=== PATIENT | female | born 1955 | race Caucasian/White ===

== ENCOUNTER 2016-04-14 08:44 | Emergency (ER) | payer MEDICAID, OTHER ==
[~2016-04-14] VITALS: Ht 154.9 cm; Wt 80.0 kg
[~2016-04-14 08:44] MED LIST: ALBU0.63 NEB; CAFF200T PO; CALCCHW9 CHEW; CYCL5TAB PO; DAPA1TAB PO; EXEN1INJ SQ; GLIM2TAB PO; GLIM4TAB PO; GLUC100017 PO; LEVO25TA4 PO; LISI40TA PO; LOVA20TA PO; METF500T PO; METO50TA11 PO; MULTCAP3 PO; NAPR500T PO; PRED20 PO; SULF1TAB23 PO
[2016-04-14 08:54] VITALS: BP 140/75; PULSE 84; RESP 20; TEMP 96.5; O2SAT 89
--- NOTE | 2016-04-14 09:05 | PD ---
HPI Chief Complaint: Back/ Neck Pain or Injury Time Seen by Provider: 09:02 Travel History International Travel<30 days: No Contact w/Intl Traveler<30days: No Traveled to known affect area: No History of Present Illness HPI 60 year-old woman history of interstitial lung disease, on chronic steroids, presents with worsening back pain, radiating down both legs, ongoing for 5 months or so. Worse over the past week. No numbness feeling weakness. No bowel or bladder symptoms. She thinks she had some x-rays and she was getting evaluated for lung transplant. She is not sure. She gets Medicare and another month or so, but states she's been having trouble For definitive follow-up on Medicaid. History Past Medical History Narrative Medical Diabetes Hypertension Interstitial lung disease / pulmonary fibrosis Menopausal: Yes Social History Alcohol Use: Yes (SEVERAL TIMES A WEEK) Tobacco Use: No Allergies-Medications (Allergen,Severity, Reaction): Coded Allergies: No Known Allergies (Verified , 04/14/16) Reported Meds & Prescriptions Reported Meds & Active Scripts Active Naproxen 500 Mg Tab 500 Mg PO BID 7 Days Reported Caffeine 200 Mg Tab 200 Mg PO DAILY Calcium 1200 (Calcium Carbonate-Vitamin D W/Minerals) 1,200-1,000 Mg-Unit Chew 1 Tab CHEW DAILY Multivitamins (Multiple Vitamin) 1 Cap Cap 1 Cap PO DAILY Glucosamine (Glucosamine Sulfate) 1,000 Mg Cap 2,000 Mg PO DAILY Metoprolol Succinate ER 24 HR (Metoprolol Succinate) 50 Mg Tab 50 Mg PO DAILY Farxiga (Dapagliflozin) 5 Mg Tab 5 Mg PO DAILY Bydureon Pen Inj (Exenatide) 2 Mg Pfpen 2 Mg SQ Q7D Glimepiride 2 Mg Tab 2 Mg PO 1800 Glimepiride 4 Mg Tab 4 Mg PO AM Take with breakfast or first main meal Metformin (Metformin HCl) 500 Mg Tab 1,000 Mg PO BIDPC With meals Lisinopril 40 Mg Tab 40 Mg PO DAILY Lovastatin 20 Mg Tab 20 Mg PO HS Levothyroxine (Levothyroxine Sodium) 25 Mcg Tab 25 Mcg PO DAILY Albuterol Neb (Albuterol Sulfate) 0.63 Mg/3 Ml Neb 0.63 Mg NEB Q4HR NEB PRN Sulfamethoxazole-Trimethoprim 800-160 Mg Tab 1 Tab PO 3 TIMES A WEEK Prednisone 20 Mg Tab 20 Mg PO DAILY Review of Systems Except as stated in HPI: all other systems reviewed are Neg Physical Exam Narrative GENERAL: Well-developed, well-nourished, no acute distress. SKIN: Warm and dry. CARDIOVASCULAR: Warm and well perfused. RESPIRATORY: Normal rate and effort. MUSCULOSKELETAL: Normal appearance of back and bilateral lower extremities. No ecchymosis, swelling, bruising. No rashes. Normal muscle bulk and tone. NEUROLOGICAL: Strength full 5/5 and equal in bilateral lower extremities in proximal and distal muscle groups. 5/5 in large toe flexion and extension. Sensation is intact to light touch throughout. Reflexes symmetric. No clonus. PSYCHIATRIC: Appropriate mood and affect; insight and judgment normal. Data Data Last Documented VS Vital Signs Date Time Temp Pulse Resp B/P Pulse Ox O2 Delivery O2 Flow Rate FiO2 04/14/16 08:54 96.5 84 20 140/75 89 Orders Spine, Lumbar Comp W/Obliq (04/14/16 ) [facility] Medical Decision Making Medical Screen Exam Complete: Yes Emergency Medical Condition: Yes Interpretation(s) Lumbar spine x-ray: Degenerative changes and mild scoliosis. Differential Diagnosis Back strain or sprain, sciatica, compression fracture, other Narrative Course Medical decision making INITIAL: Is a 60 year-old woman presents emergency department complaining of worsening low back pain. High risk for compression fractures given her chronic steroid use. We'll check x-rays. Likely discharge and outpatient follow-up for further evaluation. No evidence of spinal cord compression. Diagnosis Primary Impression: Low back pain with bilateral sciatica Qualified Code: M54.42 - Chronic bilateral low back pain with bilateral sciatica Additional Instructions: Continue current medications. Albeit her primary doctor in the next 2-4 days. Return to the emergency department for any worsening pain, numbness, tingling, weakness, or any other new or worsening symptoms. Med/Other Pt SpecificInfo: No Change to Meds Disposition: 01 DISCHARGE HOME Condition: Stable Jarvis Kwon MD Apr 14, 2016 09:05
--- NOTE | 2016-04-14 09:45 | RADRPT ---
EXAM DATE/TIME: 04/14/2016 09:28 [place] COMPARISON: No previous studies available for comparison. INDICATIONS : Lower back pain with no known injury. MEDICAL HISTORY : None. SURGICAL HISTORY : None. ENCOUNTER: Initial ACUITY: 4 - 6 months PAIN SCORE: 10/10 LOCATION: Bilateral lower back. FINDINGS: There is mild right convex lumbar scoliosis. No evidence of spondylolisthesis. Degenerative changes a re present throughout with disc space narrowing most significantly at L4-5 and endplate osteophytes a t all visualized levels. No definite evidence of acute injury or destructive change. The oblique view s reveal satisfactory alignment of the posterior facets. CONCLUSION: Degenerative changes and mild scoliosis. No definite acute findings Juan J James MD on April 14, 2016 at 9:37 Board Certified Radiologist. This report was verified electronically.
[2016-09-02] MEDS ORDERED: FURO20TA PO (14:17)
[2016-09-02] MEDS ORDERED: EXCETAB2 PO (14:17)
[2016-09-02] MEDS ORDERED: COQ1200C (14:17)
[2016-09-02] MEDS ORDERED: K-TA10TA PO (14:17)
[2016-09-10] MEDS ORDERED: EXEN1INJ (09:09)
[2016-09-10] MEDS ORDERED: ALBU0.08 (09:09)
[2016-09-10] MEDS ORDERED: CALC500C2 CHEW (09:09)
[2016-09-10] MEDS ORDERED: METO50TA11 (09:09)
[2016-09-10] MEDS ORDERED: ALBUAER3 (09:09)
[2016-09-10] MEDS ORDERED: ASPI1TAB93 PO (09:09)
[2016-09-10] MEDS ORDERED: LEVO25TA4 (09:09)
[2016-09-10] MEDS ORDERED: GABA300C5 PO (09:58)
[2016-09-13] MEDS ORDERED: GABA300C5 PO (16:19)
== END 2016-04-14 10:16 | disposition home or self-care (01) ==
LOC: NETRI 08:44
DX: M54.5 Low back pain (principal); M54.41 Lumbago with sciatica, right side; M54.42 Lumbago with sciatica, left side; I10 Essential (primary) hypertension; E11.9 Type 2 diabetes mellitus without complications; J84.9 Interstitial pulmonary disease, unspecified; J84.10 Pulmonary fibrosis, unspecified; F10.10 Alcohol abuse, uncomplicated; Z79.52 Long term (current) use of systemic steroids
CPT/HCPCS: 72110; 99283

== ENCOUNTER → 2016-12-01 | Day surgery (SDC) | payer MEDICARE, MEDICAID ==
[~2016-12-01] MED LIST changes: +ALBU0.08; -ALBU0.63 NEB; +ALBUAER3; -CAFF200T PO; +CALC500C2 CHEW; -CALCCHW9 CHEW; +CYAN1TAB24 PO; -CYCL5TAB PO; -DAPA1TAB PO; +EXEN1INJ; -EXEN1INJ SQ; -GLIM4TAB PO; -GLUC100017 PO; +LEVO25TA4; -LEVO25TA4 PO; +LYRI50CA PO; +LYRI75CA PO; +METO50TA11; -METO50TA11 PO; -NAPR500T PO; +PROPOFOL 500 MG/50 ML BTL IV ONE; -SULF1TAB23 PO
--- NOTE | 2016-12-01 11:05 | GIPROC ---
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 PREP QUALITY: good ESTIMATED BLOOD LOSS: None CONSENT: The patient understands the risks and benefits of the procedure and understands that these risks include, but are not limited to: sedation, allergic reaction, infection, perforation and/or bleeding. Alternative means of evaluation and treatment include, among others: physical exam, x-rays, and/or surgical intervention. The patient elects to proceed with this endoscopic procedure. medical equipment was checked for proper function. Hand hygiene and appropriate measures for infection prevention was taken. After the risks, benefits and alternatives of the procedure were thoroughly explained, Informed consent was verified, confirmed and timeout was successfully executed by the treatment team. A digital exam revealed no abnormalities of the rectum The EC-[id number] ([id number]) endoscope was introduced through the anus and advanced to the cecum, which was identified by both the appendix and ileocecal valve. The instrument was then slowly withdrawn as the colon was fully examined. COLON FINDINGS: Mild diverticulosis was noted in the sigmoid colon. The colon mucosa was otherwise normal. Retroflexed views revealed no abnormalities The scope was then completely withdrawn from the patient and the procedure terminated. PROCEDURE WITHDRAWAL TIME:6.9minutes ADVERSE EVENTS: There were no complications. IMPRESSIONS: 1. Mild diverticulosis was noted in the sigmoid colon 2. The colon mucosa was otherwise normal 3. Retroflexed views revealed no abnormalities 4. Revealed no abnormalities of the rectum RECOMMENDATIONS: 1. High fiber diet 2. Yearly hemoccult 3. Follow-up: GI Clinic PRN RECALL: Colonoscopy prn Getachew Larson MD eSigned: Getachew Larson MD 12/01/2016 11:05 AM cc: Special Services Coordinator, [facility] Michel and Js Mcnair M.D.
--- NOTE | 2016-12-01 11:07 | GIPROC ---
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 TOPICAL ANESTHETIC: CONSENT: The patient understands the risks and benefits of the procedure and understands that these risks include, but are not limited to: sedation, allergic reaction, infection, perforation and/or bleeding. Alternative means of evaluation and treatment include, among others: physical exam, x-rays, and/or surgical intervention. The patient elects to proceed with this endoscopic procedure. medical equipment was checked for proper function. Hand hygiene and appropriate measures for infection prevention was taken. After the risks, benefits and alternatives of the procedure were thoroughly explained, Informed consent was verified, confirmed and timeout was successfully executed by the treatment team. The patient was anesthetized with topical anesthesia and the EC-[id number] ([id number]) endoscope was introduced through the mouth and advanced to the second portion of the duodenum. Retroflexed views revealed no abnormalities The gastroscope was then slowly withdrawn and removed. Irregular z line, this was biopsied. The endoscopy was otherwise normal. STOMACH: There was mild gastritis in the gastric antrum. Multiple biopsies were performed. DUODENUM: The duodenal mucosa appeared normal. Cold forcep biopsies were taken in the second portion. ADVERSE EVENTS: There were no complications. IMPRESSIONS: 1. Irregular z line, this was biopsied 2. Normal endoscopy otherwise 3. There was mild gastritis in the gastric antrum; multiple biopsies were performed 4. Normal duodenal mucosa 5. Retroflexed views revealed no abnormalities RECOMMENDATIONS: 1. Await biopsy results. Biopsy results will not be ready for 7-10 days. If you don't hear from us in two weeks, call our office for biopsy results. 2. Follow-up: GI clinic PRN PATIENT CONDITION: stable DISPOSITION: Home REPEAT EXAM: Getachew Larson MD eSigned: Getachew Larson MD 12/01/2016 11:07 AM cc: Bob Velasco [facility] Marilu Mcnair M.D.
== END | disposition home or self-care (01) ==
LOC: ESDC 08:00
PROVIDERS: ATTEND Internal Medicine Gastroenterology
DX: D64.9 Anemia, unspecified (principal); K92.1 Melena; K57.90 Diverticulosis of intestine, part unspecified, without perforation or abscess without bleeding; K22.9 Disease of esophagus, unspecified; K29.70 Gastritis, unspecified, without bleeding
CPT/HCPCS: 82948; 88305; 88312